=== PATIENT | female | born 2000 | race Caucasian/White ===

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

== ENCOUNTER → 2021-01-23 | Outpatient (CLI) | payer OTHER ==
[~2021-01-23] MED LIST: AZITHROMYCIN250 MG PO; BENTYL 20MG TAB20 MG PO; CEFUROXIME500 MG PO; OMEPRAZOLE20 M2 PO; OMNICEF 300 MG300 MG PO; ONDANSETRON ODT4 MG PO; PREDNISONE20 MG PO
== END ==
LOC: EXRD 15:31
DX: M25.562 Pain in left knee (principal); G89.29 Other chronic pain
CPT/HCPCS: 72100; 73560

== ENCOUNTER 2021-09-01 18:45 | Emergency (ER) | payer OTHER ==
[2021-09-01 19:32] LABS: HEMOGLOBIN 13.9 gm/dl (12.3-15.3); RED BLOOD COUNT 4.61 M/UL (4.00-5.10)
[2021-09-01 20:07] LABS: BUN/CREATININE RATIO 23 (0-10)
[2021-09-01] MEDS ORDERED: BROMFED DM COU473 ML PO (20:30)
== END 2021-09-01 20:50 | disposition home or self-care (01) ==
LOC: ER1 18:45
PROVIDERS: Emergency Medicine
DX: J20.8 Acute bronchitis due to other specified organisms (principal); Z88.7 Allergy status to serum and vaccine; J45.909 Unspecified asthma, uncomplicated; Z88.8 Allergy status to other drugs, medicaments and biological substances; Z86.16 Personal history of COVID-19
CPT/HCPCS: 71046; 80053; 82550; 82553; 83874; 84484; 84703; 85025; 93005; 99285

== ENCOUNTER 2022-05-16 15:26 | Emergency (ER) | payer OTHER ==
[~2022-05-16 15:26] MED LIST changes: +BROMFED DM COU473 ML PO
[2022-05-16 16:36] LABS: HEMOGLOBIN 13.2 gm/dl (12.3-15.3); RED BLOOD COUNT 4.39 M/UL (4.00-5.10); WHITE BLOOD COUNT 8.8 K/UL (4.5-11.0)
[2022-05-16] MEDS ORDERED: PREDNISONE20 MG PO (18:28)
[2022-05-16 19:24] LABS: BUN/CREATININE RATIO 16 (0-10)
== END 2022-05-16 19:57 | disposition home or self-care (01) ==
LOC: ER1 15:26
PROVIDERS: Family Medicine
DX: U07.1 COVID-19 (principal); J45.901 Unspecified asthma with (acute) exacerbation; R55 Syncope and collapse
CPT/HCPCS: 0240U; 71045; 80053; 84439; 84443; 85025; 94664; 94760; 96374; 99285; J2930

== ENCOUNTER → 2022-05-21 | Outpatient (CLI) | payer OTHER ==
[~2022-05-21] MED LIST changes: +IBUPROFEN600 MG PO; +ZOFRAN ODT 4 MG4 MG PO
== END ==
LOC: EXRD 14:40
DX: U07.1 COVID-19 (principal)
CPT/HCPCS: 71046

== ENCOUNTER 2022-05-23 17:24 | Emergency (ER) | payer OTHER ==
[~2022-05-23 17:24] MED LIST changes: -IBUPROFEN600 MG PO; -ZOFRAN ODT 4 MG4 MG PO
[2022-05-23 18:26] LABS: HEMOGLOBIN 14.3 gm/dl (12.3-15.3); RED BLOOD COUNT 4.84 M/UL (4.00-5.10); WHITE BLOOD COUNT 10.1 K/UL (4.5-11.0)
[2022-05-23 19:24] LABS: BUN/CREATININE RATIO 28 (0-10)
[2022-05-23] MEDS ORDERED: ZOFRAN ODT 4 MG4 MG PO (23:46)
[2022-05-23] MEDS ORDERED: IBUPROFEN600 MG PO (23:46)
== END 2022-05-24 00:43 | disposition home or self-care (01) ==
LOC: ER1 17:24
PROVIDERS: Physician Assistant
DX: U07.1 COVID-19 (principal); J45.909 Unspecified asthma, uncomplicated; Z88.7 Allergy status to serum and vaccine
CPT/HCPCS: 71045; 80053; 81001; 85025; 99284